=== PATIENT | male | born 1980 | race Caucasian/White ===

== ENCOUNTER → 2022-02-14 | Emergency (ER) | payer MEDICAID, OTHER ==
[~2022-02-14] VITALS: Ht 175.3 cm; Wt 175.0 kg
[2022-02-14 18:27] LABS: Urine Bacteria FEW /hpf (None Seen); Urine Blood Negative /uL (Negative); Urine Specific Gravity 1.009 (1.001-1.035); Urine Sperm PRESENT /hpf (None Seen); Urine WBC 4 /hpf (0 - 3)
[2022-02-14 20:52] VITALS: BP 134/88
== END | disposition left against medical advice (07) ==
LOC: ER 17:19 → EDBD 17:19
DX: T40.411A Poisoning by fentanyl or fentanyl analogs, accidental (unintentional), initial encounter (principal); Z53.21 Procedure and treatment not carried out due to patient leaving prior to being seen by health care provider; Y92.9 Unspecified place or not applicable
CPT/HCPCS: 81001

== ENCOUNTER 2024-07-12 17:11 | Emergency (ER) | payer MEDICAID ==
[~2024-07-12] VITALS: Ht 175.3 cm; Wt 80.7 kg
--- NOTE | 2024-07-12 17:51 | DVH ---
CLINICAL INDICATION: PAIN SWELLING TECHNIQUE: 3 radiographic views of the left wrist were obtained. Comparison: None FINDINGS/IMPRESSION: There is no evidence of acute fracture or dislocation. Old healed fracture distal aspect 5th metacarpal. Sclerotic line along the waist of the scaphoid correlate for any snuffbox tenderness which would sugg est a possible scaphoid fracture. Distal radius and ulna appear intact. 5 6 mm calcification in the dorsal soft tissues of the left wrist. This may represent a avulsion frac ture of the triquetrum. The visualized joint space is well maintained. The alignment is anatomical. There is no radiopaque foreign body.
[2024-07-12] MEDS ORDERED: ACE3T PO (18:38)
--- NOTE | 2024-07-12 18:39 | ED.PDOC ---
Musculoskeletal HPI Comments 43-year-old male presents to ER with complaints of left wrist pain x2 days. Patient reports he has been experiencing pain/swelling to left wrist s/p a 4 foot fall out of a bed of a pickup truck and landing on his left wrist onto dirt ground 2 days ago. Denies head injury/LOC. He rates his current pain a 10/10 to left wrist without radiation. Notes he has been taking ibuprofen for his pain with slight relief. Denies left hand pain, numbness/tingling or any further symptoms/complaints Chief Complaint: Fall Injury Time Seen by MD: 18:17 Primary Care Provider: ESTEBAN Reviewed Notes: Nurses Notes, Medications, Allergies Allergies: Coded Allergies: NO KNOWN ALLERGIES (Unverified , 07/12/24) Home Meds Active Scripts Acetaminophen W/ Codeine (Tylenol W/Cod #3) 1 Tab Tb, 1 TAB PO Q6HPRN, #10 TAB 0 Refills Prov:JHONNY RIOS 07/12/24 Mode of Arrival: Ambulatory Past Medical History PAST MEDICAL HISTORY: Denies Surgical History: Denies all surgeries Family History Family History: Unknown Social History Smoker: Non-Smoker Alcohol: Denies ETOH Use Drugs: Denies Drug Use Lives In: Home Constitutional: denies: chills, diaphoresis, fatigue, fever, malaise, sweats, weakness, others EENTM: denies: blurred vision, double vision, ear bleeding, ear discharge, ear drainage, ear pain, ear ringing, eye pain, eye redness, hearing loss, mouth pain, mouth swelling, nasal discharge, nose bleeding, nose congestion, nose pain, photophobia, tearing, throat pain, throat swelling, voice changes, others Respiratory: denies: cough, hemoptysis, orthopnea, SOB at rest, shortness of breath, SOB with excertion, stridor, wheezing, others Cardiovascular: denies: chest pain, dizzy spells, diaphoresis, Dyspnea on exertion, edema, irregular heart beat, left arm pain, lightheadedness, palpitations, PND, syncope, others Gastrointestinal: denies: abdomen distended, abdominal pain, blood streaked bowels, constipated, diarrhea, dysphagia, difficulty swallowing, hematemesis, melena, nausea, poor appetite, poor fluid intake, rectal bleeding, rectal pain, vomiting, others Genitourinary: denies: burning, dysuria, flank pain, frequency, hematuria, incontinence, penile discharge, penile sore, pain, testicle pain, testicle swelling, urgency, others Neurological: denies: dizziness, fainting, headache, left sided numbness, left sided weakness, numbness, paresthesia, pre-existing deficit, right sided numbness, right sided weakness, seizure, speech problems, tingling, tremors, weakness, others Musculoskeletal: reports: others ( STATED IN HPI) Integumetry: reports: others ( STATED IN HPI) Allergic/Immunocompromised: denies: Difficulty Healing, Frequent Infections, Hives, Itching, others Hematologic/Lymphatic: denies: anemia, blood clots, easy bleeding, easy brui sing, swollen glands, others Endocrine: denies: excessive hunger, excessive sweating, excessive thirst, ex cessive urination, flushing, intolerance to cold, intolerance to heat, unexplained weight gain, unexplained weight loss, others Psychiatric: denies: anxiety, bipolar disorder, depression, hopeless, panic disorder, schizophrenia, sleepless, suicidal, others Physical Exam General Appearance: No Apparent Distress, Normal HEENT: PERRL/EOMI Neck: Full Range of Motion, Non-Tender, Normal Respiratory: Chest Non-Tender, Lungs Clear, No Accessory Muscle Use, No Respiratory Distress, Normal Breath Sounds Cardiovascular: No Murmur, No Gallop, Regular Rate/Rhythm Breast Exam: Deferred Gastrointestinal: NOT DONE Genitalia: Deferred Pelvic: Deferred Rectal: Deferred Extremities: Normal capillary refill, Normal range of motion Musculoskeletal : Extremity Location: Wrist (TTP/MODERATE SWELLING NOTED TO LEFT TRIQUETRUM. NO TTP TO LEFT ANATOMICAL SNUFFBOX. NO OTHER TTP TO LEFT WRIST NOTED. NO TTP TO LEFT HAND NOTED. NO FURTHER SKIN CHANGES NOTED. PATIENT ABLE TO FULLY MOVE ALL FINGERS OF LEFT HAND. PULSES INTACT) Neurologic: Alert, instructor extension work II-XII nml as Tested, No Motor Deficits, Normal Affect, Normal Mood, No Sensory Deficits Cerebellar Function: Normal Reflexes: Normal Skin: Dry, Normal Color, Warm Peripheral Pulses: 2+ Radial (R), 2+ Radial (L), 2+ Brachial (R), 2+ Brachial (L) Lymphatic: No Adenopathy Was a procedure done? Was a procedure done?: No Sedation Sedation?: No Differential Diagnosis EXT Differential Diagnosis: Dislocation, Laceration, Neurovascular injury X-Ray, Labs, Meds, VS Vital Signs Date Time Temp Pulse Resp B/P (MAP) Pulse Ox O2 Delivery O2 Flow Rate FiO2 07/12/24 17:19 98.5 110 18 133/82 (99) 96 98.5 PATIENT: EVON WOLFT: [id number]: [id number] : 1980 LOC: ER ROOM / BED: / AGE / SEX: 43 / M ADM STATUS: REG ER SERVICE [id number] ORDERING PHYSICIAN: JUS ALVARADO DO PROCEDURE(s): LWRI - L WRIST 3+ VIEW XRAY REASON: PAIN SWELLING ORDER NUMBER(s): [id number], ACCESSION NUMBER(s): [id number] CLINICAL INDICATION: PAIN SWELLING TECHNIQUE: 3 radiographic views of the left wrist were obtained. Comparison: None FINDINGS/IMPRESSION: There is no evidence of acute fracture or dislocation. Old healed fracture distal aspect 5th metacarpal. Sclerotic line along the waist of the scaphoid correlate for any snuffbox tenderness which would suggest a possible scaphoid fracture. Distal radius and ulna appear intact. 5 6 mm calcification in the dorsal soft tissues of the left wrist. This may represent a avulsion fracture of the triquetrum. The visualized joint space is well maintained. The alignment is anatomical. There is no radiopaque foreign body. ATED BY: VICTORIA SEAMAN Jr., DO DICTATED DATE/TIME: 07/12/241748 SIGNED BY: VICTORIA SEAMAN Jr., SIGNED DATE/TIME: 07/12/241748 CC: WRIST X-RAY REVIEWED LEFT FOREARM VOLAR SPLINT APPLIED PATIENT NEUROVASCULARLY INTACT AND HAD IMPROVEMENT IN SYMPTOMS PRIOR TO DISCHARGE TORADOL 60 MG IM ORDERED ADVISED ON REST/NO STRENUOUS ACTIVITY, ELEVATION AND ALTERNATE ICE ON/OFF NEEDED FOR PAIN/SWELLING PATIENT PROVIDED INFORMATION WITH REGARDS TO LOCAL ORTHOPEDICS AND ADVISED TO FOLLOW UP IN 1-2 DAYS ADVISED TO FOLLOW UP WITH PCP IN 1-2 DAYS PATIENT VERBALIZED UNDERSTANDING AND AGREEABLE WITH CURRENT PLAN OF CARE ADVISED TO RETURN TO ER IMMEDIATELY IF SYMPTOMS WORSEN Images Reviewed?: Images reviewed and evaluated by me Time of 1ST Reevaluation: 18:12 Reevaluation 1ST: N/A Patient Education/Counseling: Diagnosis, Treatment, Prognosis, Need For Follow Up Family Education/Counseling: No Family Present Departure 1 Departure Time of Disposition: 18:32 Impression: Primary Impression: Fracture of triquetrum of left wrist Qualified Codes: S62.115A - Nondisplaced fracture of triquetrum [cuneiform] bone, left wrist, initial encounter for closed fracture Disposition: HOME / SELF CARE / HOMELESS Condition: Stable e-Prescriptions Acetaminophen W/ Codeine (Tylenol W/Cod #3) 1 Tab Tb 1 TAB PO Q6HPRN, #10 TAB 0 Refills Prov: JHONNY RIOS 07/12/24 Discharged With: Friend Critical Care Note Critical Care Time?: No Stability Stability form required: No Heart Score Heart Score: Heart Score Response (Comments) Value History N/A 0 EKG N/A 0 Age N/A 0 Risk Factors N/A 0 Troponin N/A 0 Total 0 JHONNY RIOS Jul 12, 2024 18:39
[2024-07-12 18:44] VITALS: BP 133/82; PULSE 110; RESP 18; TEMP 98.8; O2SAT 96
[2024-07-12] MEDS: KETOROLAC TROMETH 60MG/2ML VIAL IM ONE (18:51)
== END 2024-07-12 18:51 | disposition home or self-care (01) ==
LOC: ER 17:11
DX: S62.112A Displaced fracture of triquetrum [cuneiform] bone, left wrist, initial encounter for closed fracture (principal); X58.XXXA Exposure to other specified factors, initial encounter; Y93.89 Activity, other specified; Y92.89 Other specified places as the place of occurrence of the external cause; Y99.8 Other external cause status
CPT/HCPCS: 29125; 73110